=== PATIENT | male | born 1995 | race Caucasian/White ===

== ENCOUNTER 2023-04-13 16:16 | Emergency (ER) | payer OTHER ==
[~2023-04-13] VITALS: Ht 190.5 cm; Wt 104.6 kg
[2023-04-13 16:43] VITALS: BP 149/92; PULSE 89; RESP 18; O2SAT 98
== END 2023-04-13 20:03 | disposition left against medical advice (07) ==
LOC: ER 16:16
DX: S61.011A Laceration without foreign body of right thumb without damage to nail, initial encounter (principal); Z53.21 Procedure and treatment not carried out due to patient leaving prior to being seen by health care provider; W22.8XXA Striking against or struck by other objects, initial encounter; Y93.89 Activity, other specified; Y92.89 Other specified places as the place of occurrence of the external cause; Y99.8 Other external cause status